=== PATIENT | male | born 1975 | race Caucasian/White ===

== ENCOUNTER 2022-07-21 07:56 | Emergency (ER) | payer OTHER ==
[2022-07-21] MEDS ORDERED: Iopamidol 612 MG/ML 100 ML Bottle IVPUSH ONE (09:14)
[2022-07-21] MEDS ORDERED: Take Home: Cephalexin 500 MG Cap, 6 Cap Pack PO ONE (10:31)
== END 2022-07-21 10:50 | disposition home or self-care (01) ==
LOC: DL.ED 07:56
DX: J03.90 Acute tonsillitis, unspecified (principal)
CPT/HCPCS: 70491; 87081; 87430; 99283; 99284; A9270; Q9967